=== PATIENT | male | born 1955 | race Caucasian/White ===

== ENCOUNTER 2017-08-02 18:43 | Emergency (ER) | payer OTHER ==
[~2017-08-02] VITALS: Ht 170.2 cm; Wt 97.1 kg
[2017-08-02 18:43] VITALS: BP 133/73
[~2017-08-02 18:43] MED LIST: ALBU6.7H IH; GABA-534 PO; METH500T PO; NAPR220T66 PO
[2017-08-02] MEDS ORDERED: BACLOFEN (10 MG) 10 MG TABLET PO ONE (20:30)
[2017-08-02] MEDS ORDERED: GABAPENTIN 100 MG CAPSULE PO ONE (20:30)
[2017-08-02] MEDS ORDERED: FAMOTIDINE (20 MG) 20 MG TABLET ONE (20:49)
[2017-08-02] MEDS ORDERED: BACLOFEN (10 MG) 10 MG TABLET ONE (20:49)
[2017-08-02] MEDS ORDERED: GABAPENTIN 300 MG CAPSULE ONE (20:49)
[2017-08-02] MEDS ORDERED: FAMOTIDINE (20 MG) 20 MG TABLET PO ONE (21:00)
== END 2017-08-02 22:40 | disposition home or self-care (01) ==
LOC: ER 18:47
DX: R10.13 Epigastric pain (principal); I10 Essential (primary) hypertension; I47.1 Supraventricular tachycardia; Z88.8 Allergy status to other drugs, medicaments and biological substances
CPT/HCPCS: A4606; Z7610

== ENCOUNTER 2018-05-18 02:07 | Emergency (ER) | payer OTHER ==
[~2018-05-18] VITALS: Ht 170.2 cm; Wt 99.8 kg
[2018-05-18 02:10] VITALS: BP 111/76
--- NOTE | 2018-05-18 02:10 | NUR ---
PT [facility] POST SYNCOPAL EPISODE PER EMS. -KO, -LOC. +N/V. ZOFRAN 4MG GIVEN EN ROUTE. PT ON MONITOR IN BED 10. AOX4. NAD NOTED. RESP EVEN AND UNLABORED. WILL CONTINUE TO MONITOR.
[2018-05-18] MEDS ORDERED: ONDANSETRON HCL/PF 4 MG/2 ML VIAL ONE (02:51)
[2018-05-18 03:00] LABS: BASOPHILS % (AUTO) 0.5 % (0.0-2.0); EOSINOPHILS % (AUTO) 0.8 % (0.0-6.0); HEMATOCRIT 47 % (39-51); HEMOGLOBIN 16.4 g/dL (13.5-17.5); LYMPHOCYTES # (AUTO) 1.3 /CMM (0.8-4.8); LYMPHOCYTES % (AUTO) 22.6 % (20.0-44.0); MEAN CORPUSCULAR HGB CONC 35 g/dl (31.0-36.0); MEAN CORPUSCULAR VOLUME 90 fL (80-96); MONOCYTES # (AUTO) 0.5 /CMM (0.1-1.30); MONOCYTES % (AUTO) 8.8 % (2.0-12.0); NEUTROPHILS # (AUTO) 3.9 /CMM (1.8-8.9); NEUTROPHILS % (AUTO) 67.3 % (43.0-81.0); PLATELET COUNT (AUTO) 139 /CMM (150-450); RED BLOOD CELL COUNT(AUTO) 5.26 MIL/uL (4.5-6.0); WHITE BLOOD COUNT (AUTO) 5.9 K/uL (4.3-11.0)
[2018-05-18] MEDS ORDERED: ONDANSETRON HCL/PF 4 MG/2 ML VIAL IV ONE (03:00)
[2018-05-18] MEDS ORDERED: IV NS 0.9% 1,000 ML BAG IV ONE (03:00)
[2018-05-18 03:02] LABS: CALCIUM, SERUM 9.7 mg/dL (8.5-10.1); CARBON DIOXIDE 26 mmol/L (21-32); CHLORIDE 103 mmol/L (98-107); CREATININE 1.5 mg/dL (0.6-1.3); GLUCOSE 176 mg/dL (74-106); POTASSIUM 3.8 mmol/L (3.5-5.1); SODIUM SERUM 140 mmol/L (136-145); UREA NITROGEN, BLOOD 25 mg/dL (7-18)
--- NOTE | 2018-05-18 03:09 | NUR ---
Patient is resting comfortably in bed with eyes closed. Easily aroused. VSS
[2018-05-18 03:14] LABS: ALANINE AMINOTRANSFERASE 79 U/L (12-78); ALBUMIN 4.3 g/dL (3.4-5.0); ALKALINE PHOSPHATASE 75 U/L (46-116); ASPARTATE AMINOTRANSFERASE 37 U/L (15-37); B-TYPE NATRIURETIC PEPTIDE 94 PG/ML (0-125); BILIRUBIN,DIRECT 0.2 mg/dL (0.0-0.2); BILIRUBIN,TOTAL 0.8 mg/dL (0.2-1.0); TOTAL PROTEIN, SERUM 7.7 g/dL (6.4-8.2)
[2018-05-18] MEDS ORDERED: IBUPROFEN 600 MG TABLET PO ONE ×2 (03:58→04:00)
--- NOTE | 2018-05-18 04:07 | NUR ---
IV removed. Catheter intact and site benign. Pressure and 4x4 applied to site. No bleeding noted.Patient discharged to home in stable condition. Written and verbal after care instructions given. Patient verbalizes understanding of instruction.
== END 2018-05-18 04:23 | disposition home or self-care (01) ==
LOC: ER 02:08
DX: E86.0 Dehydration (principal); R55 Syncope and collapse; R42 Dizziness and giddiness; R11.2 Nausea with vomiting, unspecified; D69.6 Thrombocytopenia, unspecified; N17.9 Acute kidney failure, unspecified; R73.9 Hyperglycemia, unspecified; J45.909 Unspecified asthma, uncomplicated; G89.29 Other chronic pain; Z90.89 Acquired absence of other organs; Z98.890 Other specified postprocedural states; Z88.8 Allergy status to other drugs, medicaments and biological substances; Z79.899 Other long term (current) drug therapy
CPT/HCPCS: 36415; 71045; 80048; 80076; 83880; 84484; 85025; 93005; 96361; 96374; 99284; A4606; J2405; J7030

== ENCOUNTER 2019-01-05 16:25 | Emergency (ER) | payer OTHER ==
[~2019-01-05] VITALS: Ht 175.3 cm; Wt 95.3 kg
[2019-01-05 16:25] VITALS: BP 130/85
[2019-01-05] MEDS ORDERED: ALBUTEROL FS 2.5 MG/3 ML VIAL.NEB ONE (17:19)
[2019-01-05] MEDS ORDERED: IPRATROPIUM NEB FS 0.5 MG/2.5 ML AMPUL.NEB ONE (17:19)
[2019-01-05] MEDS ORDERED: ALBUTEROL FS 2.5 MG/3 ML VIAL.NEB NEB ONE (17:30)
[2019-01-05] MEDS ORDERED: IPRATROPIUM NEB FS 0.5 MG/2.5 ML AMPUL.NEB NEB ONE (17:30)
== END 2019-01-05 18:42 | disposition home or self-care (01) ==
LOC: ER 16:28
DX: J20.9 Acute bronchitis, unspecified (principal); G89.29 Other chronic pain; Z90.89 Acquired absence of other organs; Z98.890 Other specified postprocedural states; Z91.048 Other nonmedicinal substance allergy status; Z79.899 Other long term (current) drug therapy

== ENCOUNTER 2020-12-25 08:37 | Emergency (ER) | payer OTHER ==
[~2020-12-25] VITALS: Ht 175.3 cm; Wt 98.4 kg
[~2020-12-25 08:37] MED LIST changes: -ALBU6.7H IH; +ALBU6.7H9 IH
--- NOTE | 2020-12-25 08:40 | NUR ---
AAOX3, CAME TO ER C/O ABSCESS TO RIGHT GROIN X 1 WEEK, -DISCHARGE. PATIENT REPORTED THE HE INJECTED VIT E OIL INTO HIS RIGHT GROIN 4 DAYS AGO TO HELP HIS CHRONIC BACK PAIN. RESP IS EVEN AND UNLABORED WITH NO APPARENT DISTRESS NOTED. AWAITING MD FOR EVAL.
--- NOTE | 2020-12-25 08:52 | NUR ---
AT BEDSIDE FOR EVAL.
[2020-12-25] MEDS ORDERED: SULF1TAB48 PO (09:17)
[2020-12-25] MEDS ORDERED: CEPH500C2 PO (09:17)
--- NOTE | 2020-12-25 09:21 | NUR ---
Patient discharged to home in stable condition. Written and verbal after care instructions given. Patient verbalizes understanding of instruction.
[2020-12-25 09:22] VITALS: BP 155/89
== END 2020-12-25 09:22 | disposition home or self-care (01) ==
LOC: ER 08:48
DX: L03.314 Cellulitis of groin (principal); J45.909 Unspecified asthma, uncomplicated; G89.29 Other chronic pain; Z90.89 Acquired absence of other organs; Z98.890 Other specified postprocedural states; Z91.048 Other nonmedicinal substance allergy status; Z79.899 Other long term (current) drug therapy

== ENCOUNTER 2020-12-26 17:14 | Emergency (ER) | payer OTHER ==
[~2020-12-26] VITALS: Ht 175.3 cm; Wt 97.5 kg
[~2020-12-26 17:14] MED LIST changes: +CEPH500C2 PO; +SULF1TAB48 PO
--- NOTE | 2020-12-26 17:58 | NUR ---
TO ER BED 1, GROIN AREA DISCOMFORT FRM INJECTING VIT E. SEEN YESTERDAY FOR SAME REASON, AAOX4, BREATHING EVEN AND UNLABORED, AWAITING MD FELIZ
[2020-12-26 18:38] VITALS: BP 132/81
== END 2020-12-26 18:39 | disposition home or self-care (01) ==
LOC: ER 17:17
DX: L03.314 Cellulitis of groin (principal); J45.909 Unspecified asthma, uncomplicated; G89.29 Other chronic pain; Z98.890 Other specified postprocedural states; Z90.89 Acquired absence of other organs; Z88.8 Allergy status to other drugs, medicaments and biological substances; Z79.899 Other long term (current) drug therapy

== ENCOUNTER 2020-12-28 14:35 | Emergency (ER) | payer OTHER ==
[~2020-12-28] VITALS: Ht 175.3 cm; Wt 97.5 kg
--- NOTE | 2020-12-28 15:03 | NUR ---
THE PATIENT PRESENTED TO ER FOR WORSENING GROIN AREA ABSCESS. FEELING DIZZY TODAY. SEEN 2 DAYS AGO FOR SAME REASON. DENIES PAIN. RESPIRATION REGULAR AND UNLABORED. WILL CONTINUE TO MONITOR THE PATIENT.
[2020-12-28 17:36] VITALS: BP 132/75
--- NOTE | 2020-12-28 17:36 | NUR ---
Patient discharged to home in stable condition. Written and verbal after care instructions given. Patient verbalizes understanding of instruction.
== END 2020-12-28 17:37 | disposition home or self-care (01) ==
LOC: ER 14:46
DX: L03.314 Cellulitis of groin (principal); J45.909 Unspecified asthma, uncomplicated; G89.29 Other chronic pain; Z90.89 Acquired absence of other organs; Z98.890 Other specified postprocedural states; Z88.8 Allergy status to other drugs, medicaments and biological substances; Z79.899 Other long term (current) drug therapy
CPT/HCPCS: 76882

== ENCOUNTER 2021-01-08 12:08 | Emergency (ER) | payer OTHER ==
[~2021-01-08] VITALS: Ht 175.3 cm; Wt 97.5 kg
--- NOTE | 2021-01-08 12:20 | NUR ---
To ER bed 10, , from home, c/o abd pain x 10 days s/p R groin abscess, aaox4, breathing even and non labored, attached to monitor
[2021-01-08] MEDS ORDERED: IV NS 0.9% 1,000 ML IV ONE (12:30)
[2021-01-08 13:30] LABS: BASOPHILS % (AUTO) 0.4 % (0.0-2.0); EOSINOPHILS % (AUTO) 1.7 % (0.0-6.0); HEMATOCRIT 45 % (39-51); HEMOGLOBIN 15.5 g/dL (13.5-17.5); LYMPHOCYTES # (AUTO) 1.2 K/uL (0.8-4.8); LYMPHOCYTES % (AUTO) 16.1 % (20.0-44.0); MEAN CORPUSCULAR HGB CONC 34 g/dl (31.0-36.0); MEAN CORPUSCULAR VOLUME 91 fL (80-96); MONOCYTES # (AUTO) 0.8 K/uL (0.1-1.30); NEUTROPHILS # (AUTO) 5.4 K/uL (1.8-8.9); NEUTROPHILS % (AUTO) 70.8 % (43.0-81.0); PLATELET COUNT (AUTO) 190 K/uL (150-450); RED BLOOD CELL COUNT(AUTO) 5.01 MIL/uL (4.5-6.0); WHITE BLOOD COUNT (AUTO) 7.6 K/uL (4.3-11.0)
[2021-01-08 13:47] LABS: CALCIUM, SERUM 8.7 mg/dL (8.5-10.1); CREATININE 1.1 mg/dL (0.6-1.3); POTASSIUM 4.4 mmol/L (3.5-5.1)
[2021-01-08 13:55] LABS: ALBUMIN 3.5 g/dL (3.4-5.0); BILIRUBIN,DIRECT 0.2 mg/dL (0.0-0.2); BILIRUBIN,TOTAL 0.6 mg/dL (0.2-1.0); TOTAL PROTEIN, SERUM 7.7 g/dL (6.4-8.2)
--- NOTE | 2021-01-08 14:51 | NUR ---
CALLED EYAD FOR READING.
[2021-01-08] MEDS ORDERED: SULF1TAB48 PO (15:31)
[2021-01-08 16:09] VITALS: BP 129/90
== END 2021-01-08 16:09 | disposition home or self-care (01) ==
LOC: ER 12:12
DX: L03.311 Cellulitis of abdominal wall (principal); J45.909 Unspecified asthma, uncomplicated; G89.29 Other chronic pain; Z90.89 Acquired absence of other organs; Z98.890 Other specified postprocedural states; Z88.8 Allergy status to other drugs, medicaments and biological substances; Z79.899 Other long term (current) drug therapy
CPT/HCPCS: 36415; 74176; 80048; 80076; 83605; 85025; 96360; 99284; J7030 ×2

== ENCOUNTER 2023-05-27 15:56 | Emergency (ER) | payer OTHER ==
[~2023-05-27] VITALS: Ht 175.3 cm; Wt 75.7 kg
[2023-05-27 16:35] LABS: BASOPHILS % (AUTO) 0.4 % (0.0-2.0); EOSINOPHILS # (AUTO) 0.1 K/uL (0.0-0.7); EOSINOPHILS % (AUTO) 1.7 % (0.0-6.0); HEMATOCRIT 48 % (39-51); HEMOGLOBIN 16.4 g/dL (13.5-17.5); LYMPHOCYTES # (AUTO) 1.7 K/uL (0.8-4.8); LYMPHOCYTES % (AUTO) 25.2 % (20.0-44.0); MEAN CORPUSCULAR HEMOGLOBIN 30 PG (26.0-33.0); MEAN CORPUSCULAR HGB CONC 34 g/dl (31.0-36.0); MEAN CORPUSCULAR VOLUME 89 fL (80-96); MONOCYTES # (AUTO) 0.6 K/uL (0.1-1.30); MONOCYTES % (AUTO) 9.1 % (2.0-12.0); NEUTROPHILS # (AUTO) 4.2 K/uL (1.8-8.9); NEUTROPHILS % (AUTO) 63.6 % (43.0-81.0); PLATELET COUNT (AUTO) 148 K/uL (150-450); RED BLOOD CELL COUNT(AUTO) 5.38 MIL/uL (4.5-6.0); RED CELL DISTRIBUTION WIDTH 13.6 % (11.5-15.0); WHITE BLOOD COUNT (AUTO) 6.6 K/uL (4.3-11.0)
[2023-05-27 17:26] LABS: CALCIUM, SERUM 9.4 mg/dL (8.5-10.1); CARBON DIOXIDE 23 mmol/L (21-32); CHLORIDE 104 mmol/L (98-107); CREATININE 1.3 mg/dL (0.6-1.3); GLUCOSE 125 mg/dL (74-106); SODIUM SERUM 140 mmol/L (136-145); UREA NITROGEN, BLOOD 17 mg/dL (7-18)
[2023-05-27 17:37] LABS: ALANINE AMINOTRANSFERASE 34 U/L (12-78); ALBUMIN 4.3 g/dL (3.4-5.0); ALKALINE PHOSPHATASE 73 U/L (46-116); ASPARTATE AMINOTRANSFERASE 17 U/L (15-37); BILIRUBIN,DIRECT 0.1 mg/dL (0.0-0.2); BILIRUBIN,TOTAL 0.7 mg/dL (0.2-1.0); TOTAL PROTEIN, SERUM 7.8 g/dL (6.4-8.2)
[2023-05-27 19:03] VITALS: BP 113/60; TEMP 98; O2SAT 97
== END 2023-05-27 19:04 | disposition home or self-care (01) ==
LOC: ER 16:00
DX: R55 Syncope and collapse (principal); J45.909 Unspecified asthma, uncomplicated; G89.29 Other chronic pain; Z90.89 Acquired absence of other organs; Z88.8 Allergy status to other drugs, medicaments and biological substances
CPT/HCPCS: 36415; 71045-TC; 80048-TC; 80076-TC; 84484-TC; 85025-TC